=== PATIENT | male | born 1970 | race Caucasian/White ===

== ENCOUNTER 2024-07-06 23:04 | Emergency (ER) | payer OTHER ==
[~2024-07-06] VITALS: Ht 182.9 cm; Wt 110.7 kg
[2024-07-06 23:09] VITALS: PULSE 81; RESP 18; TEMP 98
[2024-07-06] MEDS: ASPIRIN 81 MG CHEW TAB PO ONE (23:35)
[2024-07-07 00:10] VITALS: BP 145/99; PULSE 81; RESP 18; TEMP 98; O2SAT 96
== END 2024-07-07 00:10 | disposition home or self-care (01) ==
LOC: FSED 23:09
DX: R00.2 Palpitations (principal); R06.00 Dyspnea, unspecified; F17.210 Nicotine dependence, cigarettes, uncomplicated
CPT/HCPCS: 71046; 80053; 82553; 84484; 85025; 85379; 93005; 99283